=== PATIENT | male | born 2000 | race Caucasian/White ===

== ENCOUNTER 2018-12-29 01:33 | Emergency (ER) | payer OTHER ==
[~2018-12-29] VITALS: Ht 172.7 cm; Wt 84.1 kg
[2018-12-29 03:56] LABS: BASO % 0.3 % (0.0-1.0); EOS # 0.3 10^3/uL (0.0-0.50); EOS % 3.3 % (0.0-3.0); HEMATOCRIT 41.3 % (42.0-52.0); HEMOGLOBIN 14.2 g/dl (13.5-17.5); LYMPH # 2.1 10^3/uL (1.5-6.5); LYMPH % 24.1 % (24.0-44.0); MEAN CORPUSCULAR HEMOGLOBIN 30.9 pg (27.0-33.0); MEAN CORPUSCULAR HGB CONC 34.4 g/dl (32.0-36.5); MEAN CORPUSCULAR VOLUME 89.8 fl (80.0-96.0); MONO # 1.3 10^3/uL (0.0-0.8); MONO % 15.1 % (0.0-5.0); PLATELET COUNT, AUTOMATED 231 10^3/uL (150-450); WHITE BLOOD COUNT 8.8 10^3/uL (4.0-10.0)
[2018-12-29 04:20] LABS: BLOOD UREA NITROGEN 17 MG/DL (7-18); C REACTIVE PROTEIN QUANTITATIV 1.71 MG/DL (0.00-0.30); CALCIUM LEVEL 8.7 MG/DL (8.5-10.1); CARBON DIOXIDE LEVEL 27 MEQ/L (21-32); CHLORIDE LEVEL 107 MEQ/L (98-107); CPK CREATINE PHOSPHOKINASE 131 U/L (39-308); CREATININE FOR GFR 0.95 MG/DL (0.70-1.30); GLUCOSE, FASTING 97 MG/DL (70-100); MB/CK RELATIVE INDEX 0.92 (< OR =4); SODIUM LEVEL 139 MEQ/L (136-145); TROPONIN I < 0.02 NG/ML (< 0.10)
[2018-12-29 04:25] LABS: ERYTHROCYTE SEDIMENTATION RATE 82 mm/hr (0-15)
[2018-12-29] MEDS ORDERED: predniSONE 20 MG TAB PO ONE (04:30)
[2018-12-29 06:14] VITALS: BP 104/63
--- NOTE | 2018-12-29 07:58 | REP ---
PA and lateral chest: There are no comparisons. The lung galindo are clear. The cardiac size is normal. The alvaro, mediastinum, and skeletal structures are unremarkable. Impression: Negative PA and lateral chest. Electronically Signed by Nikhil Davis MD 12/29/2018 07:50 A
--- NOTE | 2018-12-29 21:28 | ECGEPIP ---
Stationary ECG Study [facility] - ED Test Date: 2018-12-29 Pat Name: YAZ HELLER Department: Room: - Gender: M Computer Specialist: : [id number] Requested By: BAIRON Alvarez PA-C Order Number: [id number] Reading MD: Nanette Garcia Measurements Intervals [place] Rate: 64 P: 15 FL: 132 QRS: 57 QRSD: 101 T: 23 QT: 398 QTc: 411 Interpretive Statements SINUS RHYTHM NO PRIOR FOR COMPARISON Electronically Signed On 12-29-2018 21:28:14 EDT by Nanette Garcia
== END 2018-12-29 06:21 | disposition home or self-care (01) ==
LOC: M ED 01:33
DX: R00.2 Palpitations (principal); R13.10 Dysphagia, unspecified; F17.210 Nicotine dependence, cigarettes, uncomplicated

== ENCOUNTER → 2021-11-02 | Outpatient (CLI) | payer OTHER ==
[2021-11-03 18:17] LABS: BASO # 0.1 10^3/uL (0.0-0.2); BASO % 0.6 % (0.0-1.0); EOS # 0.3 10^3/uL (0.0-0.5); EOS % 3.1 % (0.0-3.0); HEMATOCRIT 44.9 % (42.0-52.0); LYMPH % 37.3 % (24.0-44.0); MEAN CORPUSCULAR HEMOGLOBIN 30.5 pg (27.0-33.0); MEAN CORPUSCULAR HGB CONC 33.4 g/dl (32.0-36.5); MEAN CORPUSCULAR VOLUME 91.3 fl (80.0-96.0); MONO # 0.7 10^3/uL (0.0-0.8); MONO % 9.1 % (2.0-8.0); NEUTROPHILS % 49.5 % (36.0-66.0); PLATELET COUNT, AUTOMATED 319 10^3/uL (150-450); RED BLOOD COUNT 4.92 10^6/uL (4.30-6.10)
[2021-11-03 18:42] LABS: ALT/SGPT 95 U/L (12-78); AMYLASE 42 U/L (25-115); BILIRUBIN,TOTAL 0.3 MG/DL (0.2-1.0); BLOOD UREA NITROGEN 20 MG/DL (7-18); CARBON DIOXIDE LEVEL 29 MEQ/L (21-32); CHLORIDE LEVEL 107 MEQ/L (98-107); CHOLESTEROL LEVEL 198 MG/DL (<200); CHOLESTEROL RISK RATIO 4.829 (<5); CREATININE FOR GFR 1.16 MG/DL (0.70-1.30); GLOMERULAR FILTRATION RATE > 60.0 (>60); GLUCOSE, FASTING 94 MG/DL (70-100); HDL CHOLESTEROL 41 MG/DL (>40); LDL CHOLESTEROL 115 MG/DL (<100); LIPASE 203 U/L (73-393); NON-HDL-C 157 MG/DL; POTASSIUM SERUM 4.5 MEQ/L (3.5-5.1); SODIUM LEVEL 142 MEQ/L (136-145); TOTAL PROTEIN 7.3 GM/DL (6.4-8.2); TRIGLYCERIDES LEVEL 210 MG/DL (<150)
== END ==
LOC: M WUC 15:12
PROVIDERS: ATTEND Physician Assistant
DX: R10.12 Left upper quadrant pain (principal)

== ENCOUNTER 2023-02-05 19:41 | Emergency (ER) | payer OTHER ==
[~2023-02-05] VITALS: Ht 172.7 cm; Wt 99.0 kg
[2023-02-05 19:41] VITALS: BP 145/92
[2023-02-05] MEDS ORDERED: KETOROLAC 30 MG/ML 1ML VIAL IM ONE (20:30)
== END 2023-02-05 21:27 | disposition home or self-care (01) ==
LOC: M ED 19:41
DX: M25.531 Pain in right wrist (principal); M70.941 Unspecified soft tissue disorder related to use, overuse and pressure, right hand; Y93.64 Activity, baseball; Y92.009 Unspecified place in unspecified non-institutional (private) residence as the place of occurrence of the external cause; F17.290 Nicotine dependence, other tobacco product, uncomplicated
CPT/HCPCS: 73090; 73110; 84550; 96372; 99283; J1885